=== PATIENT | female | born 1975 | race Caucasian/White ===

== ENCOUNTER 2019-09-04 08:39 | Inpatient (IN) | payer MEDICARE ==
[~2019-09-04] VITALS: Ht 160 cm; Wt 63.5 kg
[~2019-09-04 08:39] MED LIST: FENT1PAT74 TD; GABA300C PO; GABA300C10 PO; METH10TA2 PO; OPIU1SUP PR; OXYB5TAB10 PO; OXYC-307 PO; PHEN-418 PO; POTA20TA14 PO; TIZA4CAP PO; TIZA4TAB9 PO
--- NOTE | 2019-09-04 09:33 | NUR ---
PT PRSENTS TO ED WITH C/O GENERALIZED PAIN, N/V X 4 DAYS. PT NOTES DIARRHEA ONSET TODAY. DENIES RECENT ABX, DENIES HX CDIFF, DENIES TRAVEL OR SICK CONTACTS. PT A&OX4, RSPS EVEN AND UNLABORED. NEURO INTACT. PT SPEAKING IN FULL SENTENCES. ALL MONITORS PLACED. AWAITING MD AND ORDERS AT THIS TIME.
[2019-09-04] MEDS ORDERED: MORPHINE SULFATE 4 MG/ML, 1ML ONE ×2 (09:43→10:26)
[2019-09-04] MEDS ORDERED: ONDANSETRON 2MG/ML, 2ML ONE ×2 (09:43→11:50)
[2019-09-04] MEDS: MORPHINE SULFATE 4 MG/ML, 1ML IVPush PRN ×2 (09:46→10:30)
[2019-09-04 09:53] LABS: HCG UR SG 1.017 (1.003-1.030)
[2019-09-04 09:54] LABS: MICROSCOPIC INDICATED
[2019-09-04 09:55] LABS: CULTURE INDICATED? YES
[2019-09-04] MEDS ORDERED: ONDANSETRON 2MG/ML, 2ML IVPush ONE ×2 (10:00→12:30)
[2019-09-04] MEDS ORDERED: SODIUM CHLORIDE 0.9% 1,000ML IVBOLUS ONE ×2 (10:00→13:30)
[2019-09-04 10:02] LABS: MEAN CORPUSCULAR HEMOGLOBIN 29.2 pg (27.0-34.8); MEAN CORPUSCULAR HGB CONC 33.8 g/dL (32.4-35.8); MEAN CORPUSCULAR VOLUME 86.3 fL (80-100); MEAN PLATELET VOLUME 9.2 fL (7.4-10.4); PLATELET COUNT 128 x10^3/uL (130-400); RED BLOOD COUNT 4.53 x10^6/uL (3.82-5.3); RED CELL DISTRIBUTION WIDTH 14.1 % (9.6-15.2)
[2019-09-04 10:10] LABS: ALANINE AMINOTRANSFERASE 8 U/L (12-78); ALBUMIN 3.2 g/dL (3.4-5.0); ANION GAP 11 mmol/L (5-15); CALCIUM 8.8 mg/dL (8.5-10.1); CHLORIDE 94 mmol/L (98-107); CREATININE 1.04 mg/dL (0.55-1.02)
[2019-09-04 10:12] LABS: ALKALINE PHOSPHATASE 59 U/L (45-117); BILIRUBIN,TOTAL 1.6 mg/dL (0.2-1.0); TOTAL PROTEIN 7.7 g/dL (6.4-8.2)
--- NOTE | 2019-09-04 10:31 | NUR ---
PT REPORTS CONTINUED ABD PAIN LEVEL 8/10, (WAS 10/10 ON ARRIVAL), REQ SECOND DOSE MORPHINE. PT MEDICATED PER EMAR, TOLERATED WELL. PT TO CT AT THIS TIME.
[2019-09-04 10:42] LABS: MD YES
[2019-09-04 10:44] LABS: <RBC MORPHOLOGY> NORMAL; BAND#(MANUAL) 1.09 x10^3/uL; BANDS%(MANUAL) 10 % (0-7); BASOS#(MANUAL) 0.11 x10^3/uL (0-0.1); BASOS% (MANUAL) 1 % (0-1); LYMPH#(MANUAL) 0.65 x10^3/uL (1-3.4); LYMPHS% (MANUAL) 6 % (22-44); MONOS#(MANUAL) 1.09 x10^3/uL (0.3-2.7); MONOS% (MANUAL) 10 % (2-9); SEG#(MANUAL) 7.96 x10^3/uL (1.8-6.8); SEGS% (MANUAL) 73 % (42-75)
[2019-09-04 10:45] LABS: <PLATELET ESTIMATE> DECREASED; <PLT MORPHOLOGY> NORMAL PLT MORPH
[2019-09-04] MEDS ORDERED: OMNIPAQUE 350 MG/ML, 100ML BOTTLE ONE (10:48)
[2019-09-04] MEDS ORDERED: CEFTRIAXONE PMX 2GM/50ML 50 ML ONE (11:24)
[2019-09-04] MEDS ORDERED: CEFTRIAXONE PMX 2GM/50ML 50 ML IV SCH (11:30)
--- NOTE | 2019-09-04 11:30 | NUR ---
ORDER RECEIVED FOR ROCEPHIN, AWAITING BLOOD CX PRIOR TO ADMIN.
--- NOTE | 2019-09-04 12:00 | NUR ---
LAB HAS HAD DIFFICULTY OBTAINING BLOOD CX, RESEARCH ENVIRONMENTAL SCIENTIST AT BEDSIDE FOR SECOND ATTEMPT.
--- NOTE | 2019-09-04 12:17 | NUR ---
PT REPORTS RECURRENT NAUSEA, MD LYN INFORMED. ZOFRAN ORDER OBTAINED. PT MEDICATED PER EMAR, ROCEPHIN INITIATED AFTER BLOOD CX DRAWN X 2. PT A&O, RESPS EVEN AND UNLABORED, NSR ON CARDIAC MONTIOR WITH NO ECTOPY. PT TO BE ADMITTED, AWAITING ADMIT ROOM ASSIGNMENT AND TRANSPORT.
[2019-09-04] MEDS ORDERED: OXYC15TA PO (12:20)
[2019-09-04] MEDS ORDERED: TIZA4TAB2 PO (12:20)
[2019-09-04] MEDS ORDERED: OXYB5TAB10 PO (12:20)
[2019-09-04] MEDS ORDERED: AMIT10TA PO (12:21)
[2019-09-04] MEDS ORDERED: POTASSIUM CHLORIDE 40 MEQ in SODIUM CHLORIDE 0.9% 500 ML IV ONE (13:00)
[2019-09-04] MEDS ORDERED: hydrALAzine 20 MG/ML, 1ML IVPush PRN (13:00)
[2019-09-04] MEDS ORDERED: ONDANSETRON 2MG/ML, 2ML IVPush PRN (13:00)
[2019-09-04] MEDS ORDERED: ACETAMINOPHEN 325 MG TABLET PO PRN (13:00)
--- NOTE | 2019-09-04 13:11 | NUR ---
MD LYN NOTIFIED PT'S BP TRENDING DOWN. SECOND LITER NS BOLUS ORDERED. REPORT GIVEN TO GREG NAIR.
--- NOTE | 2019-09-04 13:17 | NUR ---
TASK RN: BOLUS HUNG PER SEP, VITALS TAKEN AND UPDATED IN COMPUTER, BP 90/47 MD AWARE. PT REQUESTING ICE CHIPTS, WILL NOTIFY
--- NOTE | 2019-09-04 14:08 | NUR ---
report given to JANIS Vivar. awaiting medical room to be cleaned prior to transport.
[2019-09-04] MEDS ORDERED: PROMETHAZINE 25 MG/ML, 1ML ONE (14:21)
--- NOTE | 2019-09-04 14:27 | NUR ---
pt vomiting, MD Crowell notified. notified pt has received 2 doses zofran, ordered IM phenergan 25 mg one time.
[2019-09-04] MEDS ORDERED: PROMETHAZINE 25 MG/ML, 1ML IM ONE (14:30)
[2019-09-04] MEDS: SODIUM CHLORIDE 0.9% 1,000 ML IV SCH ×2 (15:42→23:00)
[2019-09-04] MEDS: HEPARIN 5,000 UNITS/ML, 1ML SQ SCH (15:42)
[2019-09-04 15:47] VITALS: BP 85/51
[2019-09-04] MEDS: METRONIDAZOLE PMX 500MG/100ML 100 ML IV SCH ×2 (16:37→23:48)
[2019-09-04] MEDS: METHADONE 10 MG TABLET PO SCH (20:35)
[2019-09-04] MEDS: AMITRIPTYLINE 10 MG TABLET PO SCH (20:35)
[2019-09-04] MEDS: GABAPENTIN 300 MG CAPSULE PO SCH (20:35)
[2019-09-04 21:45] VITALS: BP 101/61
[2019-09-05 00:07] VITALS: BP 94/61
[2019-09-05] MEDS: morphine SULFATE 10 MG/ML, 1ML IVPush PRN ×7 (00:17→20:54)
[2019-09-05] MEDS: HEPARIN 5,000 UNITS/ML, 1ML SQ SCH ×3 (02:31→14:33)
[2019-09-05 05:36] LABS: BASOPHILS % (AUTO) 0 % (0-1); EOSINOPHILS % (AUTO) 0 % (1-7); LYMPHOCYTES # (AUTO) 0.48 x10^3/uL (1-3.4); LYMPHOCYTES % (AUTO) 7 % (22-44); MD NO; MEAN CORPUSCULAR HEMOGLOBIN 29.1 pg (27.0-34.8); MEAN CORPUSCULAR HGB CONC 33.3 g/dL (32.4-35.8); MEAN CORPUSCULAR VOLUME 87.4 fL (80-100); MEAN PLATELET VOLUME 9.2 fL (7.4-10.4); MONOCYTES # (AUTO) 0.84 x10^3/uL (0.2-0.8); MONOCYTES % (AUTO) 13 % (2-9); NEUTROPHILS # (AUTO) 5.35 x10^3/uL (1.8-6.8); NEUTROPHILS % (AUTO) 80 % (42-75); PLATELET COUNT 111 x10^3/uL (130-400); RED BLOOD COUNT 3.71 x10^6/uL (3.82-5.3); RED CELL DISTRIBUTION WIDTH 14.7 % (9.6-15.2)
[2019-09-05 05:43] LABS: CHLORIDE 104 mmol/L (98-107)
[2019-09-05 05:50] LABS: ANION GAP 6 mmol/L (5-15); CALCIUM 7.7 mg/dL (8.5-10.1)
[2019-09-05 07:36] LABS: CLOSTRIDIUM DIFFICILE ANTIGEN NEGATIVE; CLOSTRIDIUM DIFFICILE TOXIN NEGATIVE (Negative)
[2019-09-05] MEDS: METHADONE 10 MG TABLET PO SCH ×2 (07:40→20:41)
[2019-09-05] MEDS: METRONIDAZOLE PMX 500MG/100ML 100 ML IV SCH ×2 (07:40→17:35)
[2019-09-05] MEDS: GABAPENTIN 300 MG CAPSULE PO SCH ×2 (07:40→20:40)
[2019-09-05] MEDS: POTASSIUM CHLORIDE 20 MEQ TAB.ER.PRT PO SCH ×2 (07:40→17:35)
[2019-09-05] MEDS: SODIUM CHLORIDE 0.9% 1,000 ML IV SCH (07:41)
[2019-09-05 09:41] VITALS: BP 101/61
[2019-09-05] MEDS: CEFTRIAXONE PMX 1GM/50ML 50 ML IV SCH (12:21)
[2019-09-05 14:11] VITALS: BP 96/60
[2019-09-05] MEDS: OXYcodone IR 5MG TABLET PO PRN (14:32)
[2019-09-05] MEDS: PANTOPRAZOLE 40 MG IV IVPush SCH (14:33)
[2019-09-05 17:02] VITALS: BP 95/62
[2019-09-05] MEDS: OXYBUTYNIN CHLORIDE 5 MG TABLET PO SCH ×2 (17:35→20:41)
[2019-09-05 19:08] VITALS: BP 111/68
[2019-09-05] MEDS: AMITRIPTYLINE 10 MG TABLET PO SCH (20:41)
[2019-09-05] MEDS ORDERED: TIZANIDINE 4MG TABLET PO SCH (21:00)
[2019-09-06] MEDS: METRONIDAZOLE PMX 500MG/100ML 100 ML IV SCH ×2 (00:15→07:49)
[2019-09-06] MEDS: SODIUM CHLORIDE 0.9% 1,000 ML IV SCH ×2 (00:15→10:01)
[2019-09-06] MEDS: morphine SULFATE 10 MG/ML, 1ML IVPush PRN ×3 (00:19→14:48)
[2019-09-06 00:22] VITALS: BP 93/55
[2019-09-06] MEDS: HEPARIN 5,000 UNITS/ML, 1ML SQ SCH ×2 (02:05→14:19)
[2019-09-06 05:51] LABS: ANION GAP 3 mmol/L (5-15); CALCIUM 8.1 mg/dL (8.5-10.1); CHLORIDE 107 mmol/L (98-107); CREATININE 0.71 mg/dL (0.55-1.02)
[2019-09-06] MEDS: PANTOPRAZOLE 40 MG IV IVPush SCH (07:49)
[2019-09-06 08:04] VITALS: BP 93/56
[2019-09-06] MEDS: GABAPENTIN 300 MG CAPSULE PO SCH (08:49)
[2019-09-06] MEDS: OXYBUTYNIN CHLORIDE 5 MG TABLET PO SCH (08:49)
[2019-09-06] MEDS: METHADONE 10 MG TABLET PO SCH (08:49)
[2019-09-06] MEDS: OXYcodone IR 5MG TABLET PO PRN (11:32)
[2019-09-06] MEDS: CEFTRIAXONE PMX 1GM/50ML 50 ML IV SCH (12:03)
[2019-09-06] MEDS ORDERED: CIPR500T87 PO (14:02)
[2019-09-06 15:01] VITALS: BP 107/55
== END 2019-09-06 17:10 | disposition home or self-care (01) | DRG 871 ==
LOC: ED 09:22 → EDIP 12:14 → SUATTDRO 12:35 → 3N 15:13 → DCLOUNGE 09-06 16:57
PROVIDERS: ADMIT Hospitalist; ATTEND Hospitalist
DX: A41.9 Sepsis, unspecified organism (principal); N17.0 Acute kidney failure with tubular necrosis; E87.1 Hypo-osmolality and hyponatremia; K56.7 Ileus, unspecified; N10 Acute pyelonephritis; D69.59 Other secondary thrombocytopenia; E86.0 Dehydration; E86.1 Hypovolemia; E87.6 Hypokalemia; G89.29 Other chronic pain; A08.4 Viral intestinal infection, unspecified; M43.6 Torticollis; M79.7 Fibromyalgia; Z79.891 Long term (current) use of opiate analgesic; Z86.61 Personal history of infections of the central nervous system; Z90.710 Acquired absence of both cervix and uterus
CPT/HCPCS: 36415; 74177; 80048; 80053; 81001; 81025; 83690; 85025; 87040; 87077; 87086; 87186; 87324; 96361; 96374; 96375; 96376; G0378; J0696; J1644; J2405; J2550; J3480; Q9967; C9113; J2270; J7030; J7040

== ENCOUNTER 2020-10-22 16:20 | Emergency (ER) | payer MEDICARE ==
[~2020-10-22] VITALS: Ht 160 cm; Wt 57.3 kg
[~2020-10-22 16:20] MED LIST changes: +AMIT10TA PO; +CIPR500T87 PO; -OXYC-307 PO; +OXYC-380 PO; +OXYC15TA3 PO; +TIZA4TAB2 PO
[2020-10-22 18:11] LABS: BASOPHILS % (AUTO) 1 % (0-1); EOSINOPHILS % (AUTO) 2 % (1-7); LYMPHOCYTES % (AUTO) 25 % (22-44); MEAN CORPUSCULAR HEMOGLOBIN 29.1 pg (27.0-34.8); MEAN PLATELET VOLUME 8.7 fL (7.4-10.4); MONOCYTES % (AUTO) 8 % (2-9); NEUTROPHILS % (AUTO) 64 % (42-75); PLATELET COUNT 200 x10^3/uL (130-400); RED BLOOD COUNT 4.52 x10^6/uL (3.82-5.3)
[2020-10-22 18:13] LABS: MD NO
[2020-10-22 18:17] LABS: ALANINE AMINOTRANSFERASE 13 U/L (12-78); ALBUMIN 4.3 g/dL (3.4-5.0); ANION GAP 3 mmol/L (5-15); CALCIUM 9.4 mg/dL (8.5-10.1); CHLORIDE 106 mmol/L (98-107)
[2020-10-22 18:21] LABS: MICROSCOPIC AUTO
[2020-10-22 18:25] LABS: ALKALINE PHOSPHATASE 53 U/L (45-117); FREE T4 (FREE THYROXINE) 1.09 ng/dL (0.76-1.46); TOTAL PROTEIN 7.6 g/dL (6.4-8.2); TROPONIN I < 0.015 ng/mL (0.000-0.045)
--- NOTE | 2020-10-22 18:34 | NUR ---
PT UPRIGHT ON GURNEY MILDLY ANXIOUS BUT DAUGHTER IS ABLE TO EASILY REDIRECT/REASSURE HER, COMFORT MEASURES PROVIDED, CALL LIGHT WITHIN REACH.
--- NOTE | 2020-10-22 19:06 | NUR ---
REPORT GIVEN TO
--- NOTE | 2020-10-22 19:06 | NUR ---
RECEIVED BEDSIDE REPORT FROM JONNY BRUCE. ASSUMING CARE AT THIS TIME. PT RETURNING FROM CT.
[2020-10-22] MEDS ORDERED: OMNIPAQUE 350 MG/ML, 100ML BOTTLE ONE ×2 (19:09→19:11)
--- NOTE | 2020-10-22 19:34 | NUR ---
ALL RESULTS ARE BACK AT THIS TIME. CHART UP FOR RECHECK.
[2020-10-22 20:42] VITALS: BP 136/74
== END 2020-10-22 20:47 | disposition home or self-care (01) ==
LOC: ED 20:35
DX: R10.84 Generalized abdominal pain (principal); R10.13 Epigastric pain; R51.9 Headache, unspecified; R07.89 Other chest pain; M79.10 Myalgia, unspecified site; R53.1 Weakness; K59.00 Constipation, unspecified; R94.31 Abnormal electrocardiogram [ECG] [EKG]; Z79.899 Other long term (current) drug therapy
CPT/HCPCS: 36415; 74177; 80053; 81001; 83690; 84439; 84443; 84484; 85025; 93005; 99285; Q9967